=== PATIENT | male | born 1980 | race African-American/Black ===

== ENCOUNTER 2018-05-01 18:35 | Inpatient (IN) | payer BC, OTHER ==
[~2018-05-01] VITALS: Ht 180.3 cm; Wt 167.9 kg
[2018-05-01] MEDS ORDERED: cloNIDine HCL 0.1 MG TAB PO ONE ×2 (19:00→22:45)
[2018-05-01 19:21] LABS: Albumin 3.2 g/dL (3.4-5.0); BUN/Creatinine Ratio 7.9; Calcium 8.6 mg/dL (8.5-10.1); Potassium 3.4 mmol/L (3.5-5.1)
[2018-05-01 19:26] LABS: Bilirubin, Total 0.4 mg/dL (0.2-1.0); Total Protein 7.2 g/dL (6.4-8.2)
[2018-05-01 19:32] LABS: Basophils # (auto) 0 uL; Eosinophils # (auto) 0.2 uL; Hemoglobin 14.7 g/dL (13.5-17.5); Lymphocytes # (auto) 1.6 uL; Monocytes # (auto) 0.4 uL; Monocytes % (auto) 7.7 % (0.0-12.0); Nucleated Red Blood Cells % 0.2 %; Red Cell Distribution Width 14.3 % (11.8-14.3); White Blood Cell 5.1 10^3/uL (4.4-10.8)
[2018-05-01 19:34] LABS: Basophils % (auto) 0.5 % (0.0-2.0); Hematocrit 44.5 % (41.0-53.0); Lymphocytes % (auto) 31.5 % (10.0-50.0); Mean Corpuscular Hemoglobin 25.8 pg (28.0-32.0); Mean Corpuscular Hgb Conc. 33.1 g/dL (32.0-36.0); Neutrophils % (auto) 57.3 % (37.0-80.0); Platelet Count (auto) 181 10^3/uL (140-450)
[2018-05-01] MEDS ORDERED: amLODIPine BESYLATE 5 MG TAB PO ONE (22:45)
[2018-05-02] MEDS ORDERED: VANCOMYCIN 1GM/250ML 250 ML IV ONE (01:30)
[2018-05-02] MEDS ORDERED: ASPirin 81 mg TAB PO ONE (02:00)
[2018-05-02] MEDS ORDERED: cloNIDine HCL 0.1 MG TAB PO PRN (03:45)
[2018-05-02] MEDS ORDERED: hydrALAZINE HCL 20 MG/ML VL IV PRN (03:45)
[2018-05-02] MEDS ORDERED: ONDANSETRON HCL 4 MG/2 ML VIAL IV PRN (03:45)
[2018-05-02] MEDS ORDERED: DEXTROSE (50%) 50ML SYRG IV PRN (03:45)
[2018-05-02] MEDS ORDERED: MORPHINE SULF INJ 2 MG/ML SYRINGE 1ML IV PRN (03:45)
[2018-05-02] MEDS ORDERED: NITROGLYCERIN 0.4 MG SL TAB SL PRN (03:45)
[2018-05-02] MEDS: ACCU-CHEK COMFORT CURVE STRIP VI SCH ×6 (04:20→23:21)
[2018-05-02] MEDS: InsuLIN REG 1unit/0.01ml Soln (100units/ml) SC SCH ×6 (04:30→23:20)
--- NOTE | 2018-05-02 05:21 | NUR ---
Telemetry admit from ER [id number] admitted to Telemetry unit . Patient oriented to unit, room, bed, and unit policies regarding patient care and visiting hours. Patient now on continuous telemetry monitoring, tele box # 6 and telemetry reading on arrival to unit is SR [address] Patient placed on bedside oxygen, weighed by bed scale and encouraged to call if they need something. All questions and concerns addressed, patient verbalized understanding.
[2018-05-02] MEDS ORDERED: AMLO5TAB13 PO (06:04)
[2018-05-02] MEDS ORDERED: LISI-646 PO (06:04)
[2018-05-02] MEDS ORDERED: METO25TA5 PO (06:04)
[2018-05-02] MEDS ORDERED: CLON0.1T PO (06:04)
[2018-05-02] MEDS ORDERED: ATOR20TA PO (06:06)
[2018-05-02] MEDS ORDERED: METF-370 PO (06:06)
[2018-05-02] MEDS: ACETAMINOPHEN 500 MG TAB PO PRN ×2 (06:12→17:47)
--- NOTE | 2018-05-02 07:00 | NUR ---
Opening Shift Note Assumed care of patient, awake and alert. No S/S of distress/SOB or pain. Instructed on POC and to call for assist PRN, will continue to monitor for changes Q1hr and PRN.
--- NOTE | 2018-05-02 07:30 | NUR ---
BP PATIENTS BP IS 203/121
--- NOTE | 2018-05-02 07:39 | NUR ---
PAGEUma HOSPITALIST IN REGARDS TO PATIENTS BP
[2018-05-02 08:11] LABS: Basophils # (auto) 0 uL; Eosinophils # (auto) 0.1 uL; Lymphocytes # (auto) 1.1 uL; Lymphocytes % (auto) 27.6 % (10.0-50.0); Monocytes # (auto) 0.3 uL; Neutrophils # (auto) 2.4 uL; Nucleated Red Blood Cells % 0.1 %
[2018-05-02 08:13] LABS: Basophils % (auto) 0.6 % (0.0-2.0); Eosinophils % (auto) 3.6 % (0.0-7.0); Hematocrit 43.7 % (41.0-53.0); Hemoglobin 14.6 g/dL (13.5-17.5); Mean Corpuscular Hemoglobin 26.2 pg (28.0-32.0); Mean Corpuscular Hgb Conc. 33.5 g/dL (32.0-36.0); Mean Corpuscular Volume 78.2 fL (80.0-100.0); Monocytes % (auto) 8.2 % (0.0-12.0); Platelet Count (auto) 156 10^3/uL (140-450); Red Blood Cells 5.59 10^6/uL (4.5-5.90)
[2018-05-02] MEDS: ASPirin 81 mg TAB PO SCH (08:17)
--- NOTE | 2018-05-02 08:22 | NUR ---
ADMINISTERED PATIENTS DAILY BLOOD PRESSURE MEDICATIONS EARLY DUE TO PATIENTS INCREASED BLOOD PRESSURE OF 203/121
[2018-05-02 08:23] LABS: BUN/Creatinine Ratio 9.1; Calcium 8.6 mg/dL (8.5-10.1); Potassium 3.2 mmol/L (3.5-5.1)
[2018-05-02 08:37] VITALS: BP 192/132
[2018-05-02] MEDS ORDERED: LISINOPRIL 20 MG TAB PO SCH (10:00)
[2018-05-02] MEDS ORDERED: cloNIDine 0.3 mg/24hr 7DAY PATCH TD SCH (10:00)
[2018-05-02] MEDS ORDERED: amLODIPine BESYLATE 5 MG TAB PO SCH (10:00)
[2018-05-02] MEDS ORDERED: METOPROLOL SUCCINATE XL 50 MG TAB PO SCH (10:00)
[2018-05-02] MEDS: amLODIPine BESYLATE 5 MG TAB PO SCH (11:54)
[2018-05-02] MEDS: hydrALAZINE HCL 25 MG TAB PO SCH ×2 (11:54→21:07)
[2018-05-02] MEDS: METOPROLOL SUCCINATE XL 50 MG TAB PO SCH (11:54)
[2018-05-02 13:00] VITALS: BP 152/77
[2018-05-02 13:53] LABS: Urine Bacteria NONE SEEN /hpf (None Seen); Urine Blood Negative /uL (Negative); Urine Specific Gravity 1.013 (1.001-1.035); Urine WBC <1 /hpf (0 - 3)
[2018-05-02] MEDS ORDERED: POTASSIUM CHL 20 Meq TABLET PO ONE (15:00)
[2018-05-02 16:02] LABS: Alcohol, Urine < 3.0 mg/dL (0-5); Amphetamine Screen, Urine NEGATIVE (NEGATIVE); Barbiturate Scree,Urine NEGATIVE (NEGATIVE); Benzodiazephine Screen, Urine NEGATIVE (NEGATIVE); Cannabinoid Screen, Urine NEGATIVE (NEGATIVE); Cocaine Screen, Urine NEGATIVE (NEGATIVE); Opiate Scree,Urine NEGATIVE (NEGATIVE); Phencyclidine Screen, Urine NEGATIVE (NEGATIVE)
[2018-05-02 17:00] VITALS: BP 156/104
[2018-05-02] MEDS ORDERED: CEPHALEXIN 250 MG CAP PO SCH (18:00)
--- NOTE | 2018-05-02 19:10 | NUR ---
OPENING SHIFT NOTE ASSUMED CARE OF PATIENT FROM DAY SHIFT BRIGETTE PATTERSON. PATIENT IS A/O X4 WITH EVEN AND UNLABORED RESPIRATIONS NOTED. NO S/S OF DISTRESS OF PAIN AT THIS TIME. BED IS LOW, LOCKED, LOCKED, AND CALL LIGHT IS IN REACH. WILL CONTINUE TO MONITOR. Addendum: 05/02/18 at 2053 by JULIA ADAMSON RN RN ALSO INSTRUCTED AND DISCUSSED POC
[2018-05-02] MEDS: ceFAZolin 1GM/50ML 50 ML IV SCH (21:07)
[2018-05-02] MEDS: cloNIDine HCL 0.1 MG TAB PO SCH ×2 (21:08→22:54)
[2018-05-02] MEDS: ATORVASTATIN 20 MG TAB PO SCH (21:09)
[2018-05-02 21:51] VITALS: BP 155/94
[2018-05-02] MEDS ORDERED: INSULIN LANTUS (GLARGINE) 1 /0.01ml (100units/ml) SC SCH (22:00)
[2018-05-02] MEDS ORDERED: HYDROcodone-ACET 5/325MG TAB PO ONE (23:00)
[2018-05-02] MEDS ORDERED: TEMAZEPAM 15 MG CAP PO ONE (23:00)
[2018-05-03] MEDS: ACCU-CHEK COMFORT CURVE STRIP VI SCH ×5 (04:14→20:28)
[2018-05-03] MEDS: InsuLIN REG 1unit/0.01ml Soln (100units/ml) SC SCH ×6 (04:14→21:35)
[2018-05-03 05:01] VITALS: BP 162/100
[2018-05-03] MEDS: ceFAZolin 1GM/50ML 50 ML IV SCH ×3 (05:30→21:11)
[2018-05-03] MEDS: cloNIDine HCL 0.1 MG TAB PO SCH ×3 (05:41→21:34)
--- NOTE | 2018-05-03 07:21 | NUR ---
CLOSING NOTE PATIENT IS A/O X4 WITH EVEN AND UNLABORED RESPIRATIONS NOTED. NO S/S OF DISTRESS OF PAIN AT THIS TIME. BED IS LOW, LOCKED, LOCKED, AND CALL LIGHT IS IN REACH. CARE TRANSFERRED TO DAY SHIFT BRIGETTE CANDELARIO.
--- NOTE | 2018-05-03 08:00 | NUR ---
PAIN/PAGED HOSPITALIST PATIENT RESTLESS SCREAMING IN PAIN WHILE HOLDING AND GUARDING LEG. SMITH HOSPITALIST Addendum: 05/03/18 at 2045 by JULIA ADAMSON RN RN WRONG TIME. RIGHT TIME 1999 Addendum: 05/03/18 at 2048 by JULIA ADAMSON RN RN PATIENT HAS NO PAIN MEDICATION ORDERED EXCEPT TYLENOL 500 MG WHICH WAS GIVEN AT 1851 AND MORPHINE FOR CHEST PAIN.
--- NOTE | 2018-05-03 08:00 | NUR ---
PT RESTING IN BED, NO DISTRESS NOTED. 2 RIGHT SMALL LOWER LEG SCABS NOTED. NO SWELLING OR ERYTHEMA. PT BP 162/ 100 AT B5 AM. NIGHT NURSE REPORTS SHE GAVE PRN CLONIDINE AT 0600 AND APRESOLINE AT 0500. PT REPORTS 2/10 PAIN IN RIGHT LEG AT THIS TIME. PT ENCOURAGED TO USE CALL LIGHT PRN, WILL CONTINUE TO MONITOR.
[2018-05-03 09:00] VITALS: BP 168/113
--- NOTE | 2018-05-03 09:27 | NUR ---
PERFORATOR LOADER REPORTS PT BP 168/113, PRN APRESOLINE ALREADY GIVEN BY NIGHT NURSE, NO DISTRESS NOTED. WILL CONTINUE TO MONITOR.
[2018-05-03] MEDS: ASPirin 81 mg TAB PO SCH (09:56)
[2018-05-03] MEDS: METOPROLOL SUCCINATE XL 50 MG TAB PO SCH (09:56)
[2018-05-03] MEDS: hydrALAZINE HCL 25 MG TAB PO SCH ×2 (09:57→21:33)
[2018-05-03] MEDS: amLODIPine BESYLATE 5 MG TAB PO SCH (09:59)
[2018-05-03] MEDS ORDERED: LISINOPRIL 20 MG TAB PO SCH (10:00)
--- NOTE | 2018-05-03 10:12 | NUR ---
FORREST WITH DR HASSAN. ULTRASOUND DUPLEX FOR LOWER EXT FOR PATIENT NOT DONE YESTERDAY, NEW ORDERS PUT IN FOR ANOTHER ULTRASOUND. REQUESTS CALL TO [facility] TO GET IT DONE. CALLED ULTRASOUND, NO ANSWER, LEFT MESSAGE FOR VIOLET INFORMING HER ULTRASOUND NEEDED FOR PATIENT. AWAITING CALL BACK. Addendum: 05/03/18 at 1051 by CODY SAVAGE RN NOTIFIED DR HASSAN PT BP IS 168/113, AWARE, NO NEW ORDERS.
--- NOTE | 2018-05-03 11:36 | NUR ---
SPOKE WITH DR. CALLES, INFORMED MD PT BP 168/113 AND POT LEVEL 3.2. MD SPOKE WITH PATIENT AND DISCUSSED POC. NEW ORDERS FOR 40 MEQ POT NOW, 50 MG ALDACTONE DAILY, ECHO, AND RENAL ULTRASOUND WITH DOPPLER AND COLOR TO RULE OUT RENAL ARTERY STENOSIS. PT REPORTS ULTRASOUND FOR BILATERAL EXTREMITY DONE, AWAITING RESULTS, WILL CONTINUE TO MONITOR.
[2018-05-03] MEDS ORDERED: POTASSIUM CHL 20 Meq TABLET PO ONE (11:45)
--- NOTE | 2018-05-03 12:34 | NUR ---
VIOLET FROM ULTRASOUND CALLED. VIOLET REPORTS PT NEEDS TO BE NPO FOR 8 HRS FOR HER TO DO RENAL ULTRASOUND. SHE WANTS PT NPO AFTER MIDNIGHT SO SHE CAN DO IT FIRST THING IN THE MORNING.
[2018-05-03 13:00] VITALS: BP 157/115
--- NOTE | 2018-05-03 14:08 | NUR ---
BILATERAL EXTREMITY ULTRASOUND UNREMARKABLE.
[2018-05-03] MEDS: INSULIN LISPRO (HUMAN) 100 UNITS/ML ML SC SCH (16:31)
[2018-05-03 17:00] VITALS: BP 152/99
[2018-05-03] MEDS: ACETAMINOPHEN 500 MG TAB PO PRN (18:52)
--- NOTE | 2018-05-03 20:45 | NUR ---
PAIN/HOSPITALIST REPAGED
--- NOTE | 2018-05-03 21:05 | NUR ---
HOSPITALIST RETURNED CALL NEW ORDER RECEIVED FOR PATIENTS LEG PAIN. 4MG MORPHINE IV ONCE. DR KARIMI STATED THAT HE NEEDS TO GET A SCHEDULED PRN PAIN MEDICATION FROM THE DOCTOR THAT SEES HIM EVERYDAY. STATES SHE WILL NOT GIVE A PRN ORDER AT THIS TIME. PATIENT SEEN BY HOSPITALISTS FAITH AND HELEN. WILL PASS ON TO DAY SHIFT TO GET A SCHEDULED PRN PAIN MEDICATION ON BOARD SO THAT PATIENT HAS IT IF NEEDED. PATIENT HAD 10/10 PAIN THAT RADIATED DOWN LEG. PATIENT MOANING AND GRABBING LEG. WILL CARRY OUT ORDER.
[2018-05-03] MEDS ORDERED: MORPHINE SULFATE 4 MG/ML SYR/VIAL IV ONE (21:15)
[2018-05-03] MEDS: ATORVASTATIN 20 MG TAB PO SCH (21:35)
[2018-05-03 21:40] VITALS: BP 150/94
[2018-05-03] MEDS ORDERED: INSULIN LANTUS (GLARGINE) 1 /0.01ml (100units/ml) SC SCH (22:00)
[2018-05-04] MEDS: ACCU-CHEK COMFORT CURVE STRIP VI SCH ×5 (00:09→16:00)
[2018-05-04] MEDS: InsuLIN REG 1unit/0.01ml Soln (100units/ml) SC SCH ×4 (00:10→16:00)
[2018-05-04] MEDS: ACETAMINOPHEN 500 MG TAB PO PRN (04:17)
--- NOTE | 2018-05-04 04:47 | NUR ---
PATIENT IN PAIN INTERVENTION TRIED: DISTRACTION, COMPRESSION OF THE LEG WITH A WRAP, HEAT, ICE, ELEVATION, POSITION CHANGES, 500 MG TYLENOL, AND MORPHINE 4MG IV ONCE LAST NIGHT. WILL CONTINUE TO PROVIDE ALTERNATIVES.
--- NOTE | 2018-05-04 05:15 | NUR ---
SPOKE WITH HOSPITALIST Shannon KARIMI FOR PATIENTS PAIN NEW ORDER RECEIVED FOR NORCO 5/325 PO ONCE.
[2018-05-04 05:24] VITALS: BP 145/103
[2018-05-04] MEDS: ceFAZolin 1GM/50ML 50 ML IV SCH ×2 (05:29→13:39)
[2018-05-04] MEDS: cloNIDine HCL 0.1 MG TAB PO SCH ×2 (05:29→15:17)
[2018-05-04] MEDS ORDERED: HYDROcodone-ACET 5/325MG TAB PO ONE (05:30)
[2018-05-04] MEDS: INSULIN LISPRO (HUMAN) 100 UNITS/ML ML SC SCH (06:32)
--- NOTE | 2018-05-04 07:15 | NUR ---
Open Shift Note Received report on patient, awake and lying in bed. Patient states they still have pain in lower right leg, but is manageable after receiving PRN [place]. Discussed POC with patient and how they are to remain NPO until after renal US. Patient verbalized understanding. Bed in lowest locked position, side rails up x2, and call light within reach. Will continue to monitor.
[2018-05-04 07:33] LABS: Potassium 3.3 mmol/L (3.5-5.1)
--- NOTE | 2018-05-04 07:42 | NUR ---
CLOSING NOTE CLOSING NOTE Patient is resting in bed with even and unlabored respirations. No S/S of distress/SOB. Patient states that he feels much better after his norco. Bed locked in the lowest position, bed rails up x2. Call light in reach. Endorsed care to day shift BRIGETTE Longoria.
[2018-05-04 07:43] LABS: BUN/Creatinine Ratio 11.3; Calcium 8.4 mg/dL (8.5-10.1)
--- NOTE | 2018-05-04 08:35 | NUR ---
Dr Talavera Clearance Dr Talavera at patient bedside states that patient is cleared from his perspective, and to follow up outpatient and can continue on oral antibiotics once discharged. Patient verbalized understanding.
[2018-05-04] MEDS ORDERED: POTASSIUM CHL 20 Meq TABLET PO ONE (09:45)
[2018-05-04] MEDS ORDERED: SPIRONOLACTONE 25 MG TAB PO SCH (10:00)
[2018-05-04] MEDS ORDERED: ENOXAPARIN SOD 40 MG/0.4 ML SYRINGE SC SCH (10:00)
[2018-05-04] MEDS ORDERED: METOPROLOL SUCCINATE XL 50 MG TAB PO SCH (10:00)
[2018-05-04] MEDS ORDERED: LISINOPRIL 20 MG TAB PO SCH (10:00)
[2018-05-04] MEDS ORDERED: hydrALAZINE HCL 25 MG TAB PO SCH (10:00)
[2018-05-04] MEDS: ASPirin 81 mg TAB PO SCH (10:35)
[2018-05-04] MEDS: amLODIPine BESYLATE 5 MG TAB PO SCH (10:36)
[2018-05-04] MEDS ORDERED: INSULIN LISPRO (HUMAN) 100 UNITS/ML ML SC SCH (11:30)
[2018-05-04 14:59] VITALS: BP 147/96
--- NOTE | 2018-05-04 16:40 | NUR ---
Discharged Discharge instructions given as ordered. Encourage to follow up with PMD as instructed. All questions and concerns addressed. Patient verbalized understanding. Medication reconciliation form completed and copy given to patient. IV removed with catheter intact, pressure dressing applied. Telemetry unit returned to ICU. Patient taken to lobby with all personal belongings, accompanied by staff and family member. No distress noted at time of departure.
[2018-05-04] MEDS ORDERED: ATORVASTATIN 20 MG TAB PO SCH (22:00)
[2018-05-04] MEDS ORDERED: INSULIN LANTUS (GLARGINE) 1 /0.01ml (100units/ml) SC SCH (22:00)
== END 2018-05-04 16:40 | disposition home or self-care (01) | DRG 603 ==
LOC: ER 18:39 → TELE 05-02 03:52 → TELE-WESTW 05-02 05:25
PROVIDERS: ADMIT Nurse Practitioner Family; ATTEND Internal Medicine
DX: L03.115 Cellulitis of right lower limb (principal); Z68.43 Body mass index [BMI] 50.0-59.9, adult; I13.0 Hypertensive heart and chronic kidney disease with heart failure and stage 1 through stage 4 chronic kidney disease, or unspecified chronic kidney disease; I50.42 Chronic combined systolic (congestive) and diastolic (congestive) heart failure; E11.65 Type 2 diabetes mellitus with hyperglycemia; E11.628 Type 2 diabetes mellitus with other skin complications; E11.22 Type 2 diabetes mellitus with diabetic chronic kidney disease; N18.2 Chronic kidney disease, stage 2 (mild); M19.90 Unspecified osteoarthritis, unspecified site; E78.5 Hyperlipidemia, unspecified; E66.01 Morbid (severe) obesity due to excess calories; Z79.4 Long term (current) use of insulin; Z79.899 Other long term (current) drug therapy; Z82.49 Family history of ischemic heart disease and other diseases of the circulatory system; Z83.3 Family history of diabetes mellitus; Z91.19 Patient's noncompliance with other medical treatment and regimen
CPT/HCPCS: 36415; 73700; 76775; 80048; 80053; 80061; 80307; 81001; 82088; 82962; 83036; 84244; 84484; 85025; 93005; 93306; 93926; 96365; G0378; J0690; J1815; J2405